=== PATIENT | male | born 1980 | race Caucasian/White ===

== ENCOUNTER 2017-06-26 19:56 | Emergency (ER) | payer OTHER ==
[~2017-06-26] VITALS: Ht 177.8 cm; Wt 90.7 kg
[~2017-06-26 19:56] MED LIST: MOTRIN PO; NO MEDICATIONS; NORCO1 TAB 10/3 PO
== END 2017-06-26 23:00 | disposition home or self-care (01) ==
LOC: CED 19:56
DX: R51 Headache (principal); M54.2 Cervicalgia; F17.210 Nicotine dependence, cigarettes, uncomplicated; Z79.1 Long term (current) use of non-steroidal anti-inflammatories (NSAID); Z79.891 Long term (current) use of opiate analgesic
CPT/HCPCS: 99283

== ENCOUNTER 2017-07-18 13:13 | Emergency (ER) | payer OTHER ==
[~2017-07-18] VITALS: Ht 177.8 cm; Wt 90.7 kg
--- NOTE | ~2017-07-18 | CT71 ---
[facility] A Service of [facility] RADIOLOGY TEXT RESULTS PATIENT: RANULFO MAHONEY LOCATION: [facility] : 84 UNIT #: [id number] AGE: [address]: Ranulfo Roth MD SEX: M ORDER DR: [id number] [facility] [address] [place], [place] [address] [id number] MR#: [id number] Acc #: [id number] NAME: RANULFO MAHONEY : 1980 SEX: M STUDY DATE/TIME: 07/18/2017 14:28 UNIT: OFELIA ROOM: STUDY DESCRIPTION: CT Head Wo Contrast Attending Physician: Ranulfo Roth M.D. Ordering Physician: Evangelist Hutchinson M.D. Primary Care Physician: Primary Care Physician No MEDICAL IMAGING REPORT This report is preliminary unless electronic signature is present EXAM Noncontrast head CT HISTORY Sharp pain in head off and on x5 weeks. Posterior head pain. COMPARISON Head CT, 08/12/[address] exam was performed with one or more of the following radiation dose reduction techniques: automatic exposure control, adjustment of mA and/or kV according to patient size, and iterative reconstruction. FINDINGS Axial noncontrast images were obtained from the skull base to the vertex. Ventricular size and configuration are normal. There is no evidence of acute infarct or hemorrhage. There are no extra-axial fluid collections. No mass lesion or mass effect is seen. There are no skull fractures. IMPRESSION Normal noncontrast head CT. Dictated by... Karmen Guerra M.D. THIS IS AN ELECTRONICALLY VERIFIED REPORT Karmen Guerra M.D. at 07/19/2017 7:36 PM KASSIE/jacqueline TD: 07/19/2017 12:04 JOB #: [id number] [facility] A Service of [facility] RADIOLOGY TEXT RESULTS PATIENT: RANULFO MAHONEY LOCATION: [facility] : 84 UNIT #: [id number] AGE: [address]: Ranulfo Roth MD SEX: M ORDER DR: MEDICAL IMAGING REPORT Page 1 of 1 COPY
== END 2017-07-18 16:15 | disposition home or self-care (01) ==
LOC: CED 13:13
DX: L98.8 Other specified disorders of the skin and subcutaneous tissue (principal); R51 Headache
CPT/HCPCS: 70450; 96361; 96374; 96375; 99284; J1100; J1885; J2405

== ENCOUNTER 2017-07-22 12:14 | Emergency (ER) | payer OTHER ==
[~2017-07-22] VITALS: Ht 177.8 cm; Wt 90.7 kg
== END 2017-07-22 14:05 | disposition home or self-care (01) ==
LOC: CED 12:14 → CFTX 12:14
DX: R51 Headache (principal); F17.210 Nicotine dependence, cigarettes, uncomplicated
CPT/HCPCS: 96372; 99284; J1885